=== PATIENT | female | born 1980 | race Two or more races ===

== ENCOUNTER → 2024-02-01 | Outpatient (CLI) | payer MEDICAID, SELFPAY ==
--- NOTE | 2024-02-01 11:30 | XR_ITS ---
Examination: Breast ultrasound complete, bilateral Date and time of exam: February 01, 2024 1147 hours INDICATIONS: History right breast cystic disease right cyst aspiration December 01, 2049 Technique: Real-time grayscale ultrasonographic imaging bilateral breasts, including all 4 quadrants as well as nipple retroareolar and axillary regions. Findings: Sonographic images right breast 12:00 cyst 3 x 3 mm 10:00 cyst 4 x 4 millimeter No solid nodules Sonographic images left breast 2:00 cyst 6 x 5 mm 6:00 cyst 4 x 3 mm no solid nodules IMPRESSION:: BI-RADS Category 2: Benign findings
== END | disposition home or self-care (01) ==
LOC: CDIM 11:24
PROVIDERS: PCP Physician Assistant; Referring Provider Physician Assistant; Visit Provider Physician Assistant
DX: N60.01 Solitary cyst of right breast (principal); N60.02 Solitary cyst of left breast
CPT/HCPCS: 76641